=== PATIENT | female | born 1960 | race Caucasian/White ===

== ENCOUNTER 2021-03-18 09:55 | Emergency (ER) | payer OTHER ==
[2021-03-18 10:20] VITALS: BP 117/79; PULSE 87; TEMP 98.3; BMI 26.8
[2021-03-18 11:26] LABS: BASO % 0.3 % (0-2.0); EOS % 1.4 % (0-4.5); HEMATOCRIT 43.7 % (32.4-45.2); HEMOGLOBIN 14.8 GM/dL (10.7-15.3); LYMPH % 35.5 % (8-40); MCH 30.1 pg (25.7-33.7); MCHC 33.9 g/dl (32.0-36.0); MEAN PLT VOLUME 6.3 fl (7.5-11.1); NEUT % 55.8 % (42.8-82.8); PLATELET COUNT 310 10^3/uL (134-434); RBC 4.91 M/mm3 (3.60-5.2); RDW 13.6 % (11.6-15.6); WHITE BLOOD COUNT 6.2 K/mm3 (4.0-10.0)
[2021-03-18 11:39] LABS: BLOOD UREA NITROGEN 15.4 mg/dL (7-18); CALCIUM 9.4 mg/dL (8.5-10.1)
[2021-03-18 11:42] LABS: CREATININE 0.6 mg/dL (0.55-1.3)
[2021-03-18 11:44] LABS: BILIRUBIN,TOTAL 0.4 mg/dL (0.2-1); TOT PROT 7.1 g/dl (6.4-8.2)
[2021-03-18 16:39] LABS: HIV INTERPRETATION NEGATIVE (NEGATIVE)
== END 2021-03-18 11:30 | disposition home or self-care (01) ==
LOC: JERFT 09:55
DX: Z77.21 Contact with and (suspected) exposure to potentially hazardous body fluids (principal)
CPT/HCPCS: 36415; 80053; 85025; 86704; 86803; 87340; 87389; 87517; 99283-25